=== PATIENT | female | born 1935 ===

== ENCOUNTER 2021-03-31 11:33 | Emergency (ER) | payer MEDICARE, BC ==
[~2021-03-31] VITALS: Ht 165.1 cm; Wt 75.0 kg
--- NOTE | 2021-03-31 12:11 | EKG ---
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
[2021-03-31 12:42] LABS: BASO % 1 % (0-3); EOS # 0.1 x10^3/uL (0.0-0.7); EOS % 2 % (0-3); HEMATOCRIT 40.6 % (36.0-47.0); HEMOGLOBIN 13.8 g/dL (12.0-15.5); LYMPH # 1.5 x10^3/uL (1.0-4.8); LYMPH % 31 % (24-48); MEAN CORPUSCULAR HEMOGLOBIN 32 pg (25-35); MEAN CORPUSCULAR HGB CONC 34 g/dL (31-37); MEAN CORPUSCULAR VOLUME 93 fL (79-100); MONO # 0.4 x10^3/uL (0.0-1.1); MONO % 8 % (0-9); NEUT # 2.8 x10^3uL (1.8-7.7); NEUT % 59 % (31-73); PLATELET COUNT 226 x10^3/uL (140-400); RED BLOOD COUNT 4.37 x10^6/uL (3.50-5.40); RED CELL DISTRIBUTION WIDTH 13.1 % (11.5-14.5); WHITE BLOOD COUNT 4.7 x10^3/uL (4.0-11.0)
[2021-03-31 12:55] LABS: CALCIUM 9.3 mg/dL (8.5-10.1); CREATININE 1.2 mg/dL (0.6-1.0); GFR 42.7
[2021-03-31 13:02] LABS: ALBUMIN/GLOBULIN RATIO 1.4 (1.0-1.7); TOTAL BILIRUBIN 0.6 mg/dL (0.2-1.0); TOTAL PROTEIN 6.8 g/dL (6.4-8.2)
[2021-03-31] MEDS: IV NORMAL SALINE 1,000ML 1,000 ML IV ONE (13:07)
[2021-03-31] MEDS: ONDANSETRON PF 4 MG/2 ML VIAL. IVP ONE (13:07)
[2021-03-31] MEDS: IOHEXOL 300 MG/ML 75 ML VIAL. IV ONE (13:38)
--- NOTE | 2021-03-31 14:27 | RAD ---
EXAM: Chest, abdomen and pelvis CT with intravenous contrast. HISTORY: Shortness of breath. Pain. TECHNIQUE: Computed tomographic images of the chest, abdomen and pelvis were obtained following the a dministration of intravenous contrast. Multiplanar reformatting was performed. *One or more of the following individualized dose reduction techniques were utilized for this examina tion: 1. Automated exposure control. 2. Adjustment of the mA and/or kV according to patient size. 3. Use of iterative reconstruction technique. COMPARISON: None. FINDINGS: Chest: The heart is normal in size. The aorta is normal in caliber. There is partially calc ified atherosclerotic plaque involving the aorta and aortic branch vessels. There is no dissection or aneurysm. There is no coronary artery calcification. There are nonspecific mediastinal and hilar lym ph nodes. There is no lymphadenopathy. There is no pulmonary embolism. There is no pneumothorax or pleural effusion. There is mild biapical pleural parenchymal scarring. Th ere is bilateral posterior dependent and basilar atelectasis. There is a 3 mm nodule within the later al right upper lobe (series 4, image 37). There is a 3 mm pleural-based nodule within the posterior r ight lung apex due to adjacent pleural parenchymal scarring or atelectasis. There is a sclerotic lesion within the majority of the T7 vertebral body. There is a lucent lesion wi thin the posterior aspect of L1 which is likely a hemangioma. There are few additional suspected smal ler hemangiomas. There are a few bone islands. Abdomen and pelvis: No hepatic lesion is seen. The gallbladder is surgically absent. There is biliary and pancreatic ductal dilatation. This can be seen with reservoir effect status post cholecystectomy . The spleen and adrenal glands are unremarkable. There is left greater than right renal atrophy and renal cortical lobulation due to scarring. There are small simple left renal cysts. Follow-up is not routinely performed for simple cysts. There is no hydronephrosis. The bladder is nearly empty. There is no appendicitis. There is colonic diverticulosis. There are nonspecific air and fluid-filled small bowel throughout the abdomen. There is no convincing transition point to suggest obstruction. There are multiple partially calcified uterine fibroids. There is a 3.3 cm left ovarian cyst. There is calcified atherosclerotic plaque involving the aorta and aortic branch vessels. There is no aneurysm or dissection. There are vascular clips within the bilateral inguinal regions. There is surr ounding scar/granulation tissue. 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 There are degenerative changes involving the spine. There is multilevel listhe sis. IMPRESSION: 1. No convincing acute thoracic, abdominal or pelvic finding. 2. Colonic diverticulosis. 3. Bilateral renal atrophy and cortical scarring. Simple left renal cyst. 4. Nonspecific air and fluid-filled distal small bowel throughout the abdomen. There is no transition point to suggest obstruction. 5. 3.3 cm left ovarian cyst multiple calcified uterine fibroids. Given the postmenopausal status of t he patient, evaluation with a sonogram is recommended to assess the ovarian cyst if not previously pe rformed. Correlation with a CA-125 tumor marker level may also be indicated. 6. Biliary and pancreatic ductal dilatation. This can be seen with reservoir effect status post chris cystectomy. 7. 3 mm right upper lobe pulmonary nodule. Follow-up can be performed in one year if there are risk f actors for pulmonary neoplasm. 8. Sclerotic lesion within T7. The absence of known primary malignancy, this likely a hemangioma. The re are few additional lucent lesions within the vertebral column are also likely hemangiomas in the a bsence of known malignancy. Electronically signed by: Sloane Salvador MD (03/31/2021 2:25 PM) [id number]
--- NOTE | 2021-03-31 14:31 | PHYS DOC ---
Past History Past Medical History: Vascular Disease Additional Past Medical Histor: PAD, PE (JOVANI VILLANUEVA) Past Surgical History: Cholecystectomy Additional Past Surgical Histo: RLE surgery (JOVANI VILLANUEVA) Alcohol Use: Occasionally (JOVANI VILLANUEVA) General Adult EDM: Chief Complaint: BACK PAIN - NO INJURY HPI: HPI: Patient is an 85 year old female with history of PE, PAD who presents with right-sided mid back pain, right-sided upper abdominal pain, shortness of breath. Patient states her pain is in the right upper quadrant and radiates to her back. This pain is associated with shortness of breath on certain body movements and deep inspiration. (JOVANI VILLANUEVA) Review of Systems: Review of Systems: Constitutional: Denies fever, chills or generalized weakness Eyes: Denies change in visual acuity, visual field deficits or discharge HENT: Denies ear pain, nasal congestion or sore throat Respiratory: See HPI Cardiovascular: Denies chest pain, palpitations or edema GI: See HPI : Denies dysuria or hematuria Musculoskeletal: See HPI Integument: Denies rash or other skin lesion Neurologic: Denies headache, focal weakness or sensory changes (JOVANI VILLANUEVA) Current Medications: Current Meds: Current Medications Medications (Trade) Dose Ordered Sig/Flora Start Time Stop Time Status Last Admin Dose Admin Fentanyl Citrate (Fentanyl 2ml Vial) 50 mcg 1X ONCE 03/31/21 12:00 03/31/21 12:06 DC 03/31/21 13:08 50 MCG Iohexol (Omnipaque 300 Mg/ml) 75 ml 1X ONCE 03/31/21 12:15 03/31/21 12:16 DC 03/31/21 13:38 75 ML Lorazepam (Ativan Inj) 0.5 mg 1X ONCE 03/31/21 13:30 03/31/21 13:31 DC 03/31/21 13:29 0.5 MG Ondansetron HCl (Zofran) 4 mg 1X ONCE 03/31/21 13:00 03/31/21 13:01 DC 03/31/21 13:07 4 MG Sodium Chloride 1,000 ml @ 1,000 mls/hr 1X ONCE 03/31/21 12:00 03/31/21 12:59 DC 03/31/21 13:07 1,000 MLS/HR (JOVANI VILLANUEVA) Allergies: Allergies: Allergies Coded Allergies Type Severity Reaction Last Updated Verified No Known Drug Allergies 03/31/21 No (JOVANI VILLANUEVA) Physical Exam: PE: Constitutional: Well developed, well nourished, no acute distress, non-toxic appearance. HENT: Normocephalic, atraumatic, bilateral external ears normal, oropharynx moist, no oral exudates, nose normal. Eyes: EOMI, conjunctiva normal, no discharge. Neck: Normal range of motion, no stridor. Cardiovascular: Heart rate regular rhythm, no murmur. Lungs & Thorax: Bilateral breath sounds clear to auscultation. Abdomen: Bowel sounds normal, soft, right upper quadrant tenderness to palpation, negative Galindo sign, no masses, no pulsatile masses. Skin: Warm, dry, no erythema, no rash. Back: No reproducible tenderness, no CVA tenderness. Extremities: No tenderness, no cyanosis, no clubbing, ROM intact, no edema. Neurologic: Alert and oriented x4, steady and symmetrical upright gait, no focal deficits noted. (JOVANI VILLANUEVA) Current Patient Data: Labs: Laboratory Tests Test 03/31/21 12:09 03/31/21 16:12 White Blood Count 4.7 x10^3/uL (4.0-11.0) Red Blood Count 4.37 x10^6/uL (3.50-5.40) Hemoglobin 13.8 g/dL (12.0-15.5) Hematocrit 40.6 % (36.0-47.0) Mean Corpuscular Volume 93 fL (79-100) Mean Corpuscular Hemoglobin 32 pg (25-35) Mean Corpuscular Hemoglobin Concent 34 g/dL (31-37) Red Cell Distribution Width 13.1 % (11.5-14.5) Platelet Count 226 x10^3/uL (140-400) Neutrophils (%) (Auto) 59 % (31-73) Lymphocytes (%) (Auto) 31 % (24-48) Monocytes (%) (Auto) 8 % (0-9) Eosinophils (%) (Auto) 2 % (0-3) Basophils (%) (Auto) 1 % (0-3) Neutrophils # (Auto) 2.8 x10^3uL (1.8-7.7) Lymphocytes # (Auto) 1.5 x10^3/uL (1.0-4.8) Monocytes # (Auto) 0.4 x10^3/uL (0.0-1.1) Eosinophils # (Auto) 0.1 x10^3/uL (0.0-0.7) Basophils # (Auto) 0.0 x10^3/uL (0.0-0.2) Sodium Level 138 mmol/L (136-145) Potassium Level 4.0 mmol/L (3.5-5.1) Chloride Level 98 mmol/L (98-107) Carbon Dioxide Level 29 mmol/L (21-32) Anion Gap 11 (6-14) Blood Urea Nitrogen 17 mg/dL (7-20) Creatinine 1.2 mg/dL (0.6-1.0) Estimated GFR (Cockcroft-Gault) 42.7 BUN/Creatinine Ratio 14 (6-20) Glucose Level 124 mg/dL (70-99) Calcium Level 9.3 mg/dL (8.5-10.1) Total Bilirubin 0.6 mg/dL (0.2-1.0) Aspartate Amino Transf (AST/SGOT) 17 U/L (15-37) Alanine Aminotransferase (ALT/SGPT) 23 U/L (14-59) Alkaline Phosphatase 75 U/L (46-116) Troponin I High Sensitivity 12 ng/L (4-50) Total Protein 6.8 g/dL (6.4-8.2) Albumin 4.0 g/dL (3.4-5.0) Albumin/Globulin Ratio 1.4 (1.0-1.7) Lipase 150 U/L (73-393) Urine Collection Type Clean catch Urine Color Yellow Urine Clarity Clear Urine pH 5.5 Urine Specific [place] <=1.005 Urine Protein Neg (NEG-TRACE) Urine Glucose (UA) Neg mg/dL (NEG) Urine Ketones (Stick) Neg mg/dL (NEG) Urine Blood Trace (NEG) Urine Nitrite Pos (NEG) Urine Bilirubin Neg (NEG) Urine Urobilinogen Dipstick 0.2 mg/dL (0.2 mg/dL) Urine Leukocyte Esterase Neg (NEG) Urine RBC Occ /HPF (0-2) Urine WBC >40 /HPF (0-4) Urine Squamous Epithelial Cells Few /LPF Urine Bacteria Mod /HPF (0-FEW) Vital Signs: Vital Signs Date Time Temp Pulse Resp B/P (MAP) Pulse Ox O2 Delivery O2 Flow Rate FiO2 03/31/21 11:47 97.7 68 16 172/83 (112) 100 Room Air (JOVANI VILLANUEVA) EKG: EKG: EKG Interpreted by Dr. Cotton at 1206: Regular rate and rhythm 66 bpm with no ectopic beats. T wave inversion leads I and aVL. QT 414 ms/QTc 436 ms. No STEMI. (JOVANI VILLANUEVA) Radiology/Procedures: Radiology/Procedures: PROCEDURE: CT CHEST ABD PELVIS W/CONTRAST EXAM: Chest, abdomen and pelvis CT with intravenous contrast. HISTORY: Shortness of breath. Pain. TECHNIQUE: Computed tomographic images of the chest, abdomen and pelvis were obtained following the administration of intravenous contrast. Multiplanar reformatting was performed. *One or more of the following individualized dose reduction techniques were utilized for this examination: 1. Automated exposure control. 2. Adjustment of the mA and/or kV according to patient size. 3. Use of iterative reconstruction technique. COMPARISON: None. FINDINGS: Chest: The heart is normal in size. The aorta is normal in caliber. There is partially calcified atherosclerotic plaque involving the aorta and aortic branch vessels. There is no dissection or aneurysm. There is no coronary artery calcification. There are nonspecific mediastinal and hilar lymph nodes. There is no lymphadenopathy. There is no pulmonary embolism. There is no pneumothorax or pleural effusion. There is mild biapical pleural parenchymal scarring. There is bilateral posterior dependent and basilar atelect asis. There is a 3 mm nodule within the lateral right upper lobe (series 4, image 37). There is a 3 mm pleural-based nodule within the posterior right lung apex due to adjacent pleural parenchymal scarring or atelectasis. There is a sclerotic lesion within the majority of the T7 vertebral body. There is a lucent lesion within the posterior aspect of L1 which is likely a hemangioma. There are few additional suspected smaller hemangiomas. There are a few bone islands. Abdomen and pelvis: No hepatic lesion is seen. The gallbladder is surgically absent. There is biliary and pancreatic ductal dilatation. This can be seen with reservoir effect status post cholecystectomy. The spleen and adrenal glands are unremarkable. There is left greater than right renal atrophy and renal cortical lobulation due to scarring. There are small simple left renal cysts. Follow-up is not routinely performed for simple cysts. There is no hydronephrosis. The bladder is nearly empty. There is no appendicitis. There is colonic diverticulosis. There are nonspecific air and fluid-filled small bowel throughout the abdomen. There is no convincing transition point to suggest obstruction. There are multiple partially calcified uterine fibroids. There is a 3.3 cm left ovarian cyst. There is calcified atherosclerotic plaque involving the aorta and aortic branch vessels. There is no aneurysm or dissection. There are vascular clips within the bilateral inguinal regions. There is surrounding scar/granulation tissue. 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 There are degenerative changes involving the spine. There is multilevel listhesis. IMPRESSION: 1. No convincing acute thoracic, abdominal or pelvic finding. 2. Colonic diverticulosis. 3. Bilateral renal atrophy and cortical scarring. Simple left renal cyst. 4. Nonspecific air and fluid-filled distal small bowel throughout the abdomen. There is no transition point to suggest obstruction. 5. 3.3 cm left ovarian cyst multiple calcified uterine fibroids. Given the postmenopausal status of the patient, evaluation with a sonogram is recommended to assess the ovarian cyst if not previously performed. Correlation with a CA- 125 tumor marker level may also be indicated. 6. Biliary and pancreatic ductal dilatation. This can be seen with reservoir effect status post cholecystectomy. 7. 3 mm right upper lobe pulmonary nodule. Follow-up can be performed in one year if there are risk factors for pulmonary neoplasm. 8. Sclerotic lesion within T7. The absence of known primary malignancy, this likely a hemangioma. There are few additional lucent lesions within the vertebral column are also likely hemangiomas in the absence of known malignancy. Electronically signed by: Sloane Salvador MD (03/31/2021 2:25 PM) [id number] PROCEDURE: PELVIS COMPLETE EXAM: Pelvic sonogram. HISTORY: Cyst on CT. TECHNIQUE: Transabdominal sonographic imaging of the pelvis was performed. The patient deferred transvaginal imaging. COMPARISON: CT dated 03/31/2021. FINDINGS: The uterus measures 7.0 x 5.4 x 3.8 cm. The endometrial stripe measures 10 mm in thickness. There is a 3.0 cm posterior uterine fibroid with suspected partial calcification. The ovaries are obscured. There is a 4.0 x 3.2 x 2.7 cm left adnexal cyst. There is no pelvic free fluid. IMPRESSION: 1. 4.0 cm left adnexal cyst. This is likely ovarian in etiology. No solid lesion component is seen. Given the postmenopausal status of the patient, continued sonographic follow-up and correlation with a CA-125 tumor marker level is recommended. 2. Uterine fibroid measuring 3.0 cm. 3. Obscured ovaries. 4. Thickened endometrial stripe for the postmenopausal status the patient. Tissue sampling may be indicated for definitive diagnosis. Electronically signed by: Sloane Salvador MD (03/31/2021 3:30 PM) [id number] (JOVANI VILLANUEVA) Heart Score: C/O Chest Pain: No (JOVANI VILLANUEVA) Course & Med Decision Making: Course & Med Decision Making Pertinent Labs and Imaging studies reviewed. (See chart for details) Patient is an 85-year-old female who presents with right-sided mid back pain. In further questioning, she states that the pain is right upper quadrant that radiates to her back. Work-up today will include CT chest abdomen pelvis with contrast, labs, EKG, troponin, urinalysis. CT imaging shows a greater than 3 cm left ovarian cyst along with lesions along the spine. Ultrasound ordered to further evaluate adnexal mass. Ultrasound shows that the adnexal masses 4 cm on the left side. Patient also has thicker endometrium than expected for her age. Discussed these findings with the patient and advised that she follow-up with gynecologyoncology for further evaluation and management. Patient and her family member at bedside understand and are agreeable to discharge plan. Urinalysis resulted after patient left the department. It does show evidence of UTI. Patient was contacted by phone and advised to filler picker prescription. She verbalized understanding and agreement. (JOVANI VILLANUEVA) Course & Med Decision Making I was the Attending physician on the above date of service of this patient. This patient was evaluated, examined, treated, and dispositioned from the emergency department by the mid-level practitioner. I reviewed case and [facility]onc for review with recommendations for extremely close outpatient follow-up. Also agreed to plan for treatment of UTI that resulted after patient had been discharged Electronically signed, Levar Cotton DO (LEVAR COTTON DO) Roro Disclaimer: Roro Disclaimer: This electronic medical record was generated, in whole or in part, using a voice recognition dictation system. (JOVANI VILLANUEVA) Departure Departure: Impression: Primary Impression: Back pain Qualified Codes: M54.6 - Pain in thoracic spine Additional Impressions: Ovarian cyst Qualified Codes: N83.202 - Unspecified ovarian cyst, left side Endometrial thickening on ultrasound Pulmonary nodule UTI (urinary tract infection) Qualified Codes: N30.00 - Acute cystitis without hematuria Disposition: HOME / SELF CARE / HOMELESS Condition: STABLE Referrals: PCP,NO (PCP) Patient Instructions: Back Pain, Adult, [id number], Ovarian Cyst, [id number], Pulmonary Nodule, [id number] Additional Instructions: Wily Louise MD Gynecologic Oncology [address] [place] [address], [address] [place] [address] EMERGENCY DEPARTMENT GENERAL DISCHARGE INSTRUCTIONS Thank you for coming to [facility] (ED) today and trusting us with you care. We trust that you had a positive experience in our Emergency Department. If you wish to speak to the department management, you may call the director at [phone]. YOUR FOLLOW UP INSTRUCTIONS ARE FOLLOWS: 1. Follow up with your primary care doctor. If you do not have a primary doctor, please ask for a resource list of physicians or clinics that may be able to assist you with follow up care. 2. The emergency provider has interpreted your imaging studies, if any were ordered. The radiology senior marketing specialist also reviewed them. If there is a change in the findings, you will be notified in 48 hours when at all possible. 3. If a lab test or culture has been done, your results will be reviewed and you will be notified if you need a change in treatment. 4. Follow instructions verbalized to you and refer to the printouts if needed. ADDITIONAL INSTRUCTIONS AND INFORMATION: 1. Your care today has been supervised by a physician who is specially trained in emergency care. Many problems require more than one evaluation for a complete diagnosis and treatment. We recommend that you schedule your follow up appointment as recommended to ensure complete treatment of you illness or injury. If you are unable to obtain follow up care and continue to have a problem, or if your condition worsens, we recommend that you return to the ED. 2. We are not able to safely determine your condition over the phone nor are we able to give sound medical advice over the phone. For these safety reasons, if you call for medical advice we will ask you to come to the ED for further evaluation. 3. If you have any questions regarding these discharge instructions please call the ED at [phone]. SAFETY INFORMATION: In the interest of safety, wellness, and injury prevention; we encourage you to wear your seat belt, if you smoke; quite smoking, and we encourage family to use a protective helmet for bicycling and other sporting events that present an increased risk for head injury. IF YOUR SYMPTOMS WORSEN OR NEW SYMPTOMS DEVELOP, OR YOU HAVE CONCERNS ABOUT YOUR CONDITION; OR IF YOUR CONDITION WORSENS WHILE YOU ARE WAITING FOR YOUR FOLLOW UP APPOINTMENT; EITHER CONTACT YOUR PRIMARY CARE DOCTOR, THE PHYSICIAN WHOSE NAME AND NUMBER YOU WERE GIVEN, OR RETURN TO THE ED IMMEDIATELY. Scripts Cephalexin (KEFLEX) 500 Mg Capsule 1 CAP PO BID for UTI, #14 CAP Prov: JOVANI VILLANUEVA 03/31/21 Tramadol Hcl (TRAMADOL HCL) 50 Mg Tablet 50 MG PO PRN Q6HRS PRN for PAIN, #20 TAB Prov: JOVANI VILLANUEVA 03/31/21 JOVANI VILLANUEVA Mar 31, 2021 14:31 LEVAR COTTON DO Apr 01, 2021 06:09
--- NOTE | 2021-03-31 15:33 | RAD ---
EXAM: Pelvic sonogram. HISTORY: Cyst on CT. TECHNIQUE: Transabdominal sonographic imaging of the pelvis was performed. The patient deferred trans vaginal imaging. COMPARISON: CT dated 03/31/2021. FINDINGS: The uterus measures 7.0 x 5.4 x 3.8 cm. The endometrial stripe measures 10 mm in thickness. There is a 3.0 cm posterior uterine fibroid with suspected partial calcification. The ovaries are ob scured. There is a 4.0 x 3.2 x 2.7 cm left adnexal cyst. There is no pelvic free fluid. IMPRESSION: 1. 4.0 cm left adnexal cyst. This is likely ovarian in etiology. No solid lesion component is seen. G iven the postmenopausal status of the patient, continued sonographic follow-up and correlation with a CA-125 tumor marker level is recommended. 2. Uterine fibroid measuring 3.0 cm. 3. Obscured ovaries. 4. Thickened endometrial stripe for the postmenopausal status the patient. Tissue sampling may be ind icated for definitive diagnosis. Electronically signed by: Sloane Salvador MD (03/31/2021 3:30 PM) [id number]
[2021-03-31 15:45] VITALS: BP 160/84
[2021-03-31] MEDS: traMADol 50 MG TABLET PO ONE (15:45)
[2021-03-31] MEDS ORDERED: TRAM50TA PO (16:16)
[2021-03-31 16:53] LABS: BILIRUBIN,URINE NEG (NEG); CLARITY,URINE CLEAR; COLOR,URINE YELLOW; GLUCOSE,URINE NEG (NEG)
[2021-03-31 16:54] LABS: BACTERIA,URINE MOD /HPF (0-FEW); NITRITE,URINE POS (NEG); RBC,URINE OCC /HPF (0-2); SQUAMOUS EPITHELIAL CELL,UR FEW /LPF; UROBILINOGEN,URINE 0.2 mg/dL (0.2 mg/dL); WBC,URINE >40 /HPF (0-4)
[2021-03-31] MEDS ORDERED: CEPH500C PO (18:24)
== END 2021-03-31 16:26 | disposition home or self-care (01) ==
LOC: ER 11:33
DX: N30.00 Acute cystitis without hematuria (principal); N83.202 Unspecified ovarian cyst, left side; R93.89 Abnormal findings on diagnostic imaging of other specified body structures; R91.1 Solitary pulmonary nodule; M54.6 Pain in thoracic spine; Z90.49 Acquired absence of other specified parts of digestive tract
CPT/HCPCS: 36415; 71260; 74177; 76856; 80053; 81001; 83690; 84484; 85025; 87086; 93005; 96361; 96374; 96375; 99285; J2060; J2405; J3010; J7030; Q9967; 87077; 87186